=== PATIENT | male | born 1995 | race African-American/Black ===

== ENCOUNTER 2016-04-13 14:04 | Emergency (ER) | payer OTHER ==
[~2016-04-13] VITALS: Ht 175.3 cm; Wt 97.8 kg
[2016-04-13 14:22] VITALS: TEMP 36.9; Ht 175.3 cm; Wt 97.8 kg
[2016-04-13] MEDS ORDERED: MULT-513 PO (15:38)
[2016-04-13] MEDS ORDERED: XYLOCAINE 1%/SOD BICARB 20 ML VIAL INFIL STA (15:59)
[2016-04-13] MEDS ORDERED: SEPTRA DS HOME PACK 1 EA VIAL PO STA (18:15)
[2016-04-13] MEDS ORDERED: CEPHALEXIN 500MG HOME PACK 1 EA BTL PO STA (18:15)
[2016-04-13] MEDS ORDERED: SULF800T23 PO (18:17)
[2016-04-13] MEDS ORDERED: AMOX875T PO (18:17)
[2016-04-13] MEDS ORDERED: CEPH500C PO (18:18)
--- NOTE | 2016-04-13 18:19 | EMERGENCY ROOM VISIT NOTE ---
History First contact with patient: 15:21 Chief Complaint: SWELLING TO EXTREMITY Stated Complaint: SWELLING ON THE HEAD History of Present Illness The patient is a 20 year old male who presents to the Emergency Room with complaints of "swelling". The patient states that he received a haircut on that was very close to the scalp, and in the following days noticed a bump on the top of his head. This region as enlarged and developed swelling which has progressed and was forehead. He notes this started yesterday. He has had this in the past when he was younger and was placed on antibiotics. He rates his pain as a 5/10. He denies any trauma or vision changes. He denies any fevers or chills. His mother was talked to on the phone and indicated that he personally does not have a penicillin allergy but many in the family do. Tetanus is up-to-date. Review of Systems A complete 10-point Review of Systems was discussed with the patient, with pertinent positives and negatives listed in the History of Present Illness. All remaining Review of Systems questions can be considered negative unless otherwise specified. Past Medical/Surgical History High blood pressure Family History High blood pressure Social History Smoking Status: Never Smoker Social History: Patient lives with mother, denies tobacco and alcohol use. He is a senior at [employer]. Current/Historical Medications Scheduled Cephalexin Monohydrate (Keflex), 500 MG PO QID Multivitamins/Minerals (Mvi With Minerals), 1 TAB PO DAILY Sulfa/Trimethoprim (Bactrim Ds 800MG/160MG), 1 TAB PO BID Allergies Uncoded Allergies: PENICILLIN (Adverse Reaction, Unknown, , 04/13/16) Physical Exam Vital Signs Date Time Temp Pulse Resp B/P Pulse Ox O2 Delivery O2 Flow Rate FiO2 04/13/16 18:25 60 18 157/91 99 Room Air 04/13/16 16:17 67 16 132/71 100 Room Air 04/13/16 14:22 36.9 68 20 136/73 100 Room Air Physical Exam VITAL SIGNS - Vital signs and nursing notes were reviewed. Patient is afebrile , normotensive, non-tachycardic and is saturating well on room air at 100%. GENERAL -20-year-old male appearing his stated age who is in no acute distress. Communicates well with provider and answers questions appropriately. SKIN - Without rashes. There is a raised 1 cm x 1 cm palpable fluctuant mass on the superior portion of the scalp at the anterior most portion of the hairline, midline. There is no erythema. There is edema extending into the forehead. This appears to be dependent. No evidence of eye involvement. HEAD - NC/AT. There is tenderness palpation overlying the fluctuant palpable mass. There is tenderness extending into the forehead. Clinically, the fluctuant mass is consistent with an abscess. The forehead edema is consistent with dependent edema from the abscess. I do not suspect abscess progression to the forehead. NECK - Neck with FROM. Supple to palpation. No meningismus. LUNGS - Chest wall symmetric without accessory muscle use, intercostals retractions, or central cyanosis. Normal vesicular breath sounds CTA B/L. No wheezes, rales, or rhonchi appreciated. CARDIAC - RRR with S1/S2. No murmur, rubs, or gallops appreciated. Medical Decision & Procedures Medical Decision Patient was seen and evaluated as above. After obtaining a thorough history and physical examination it was apparent that the patient had a small localized abscess on the superior portion of his scalp likely secondary to his recent haircut that was short. Patient notes that he has had this when he was younger. There is edema extending into the forehead that is likely the edema that would be around the abscess on the head but due to gravity is dependent to the forehead. I do not suspect abscess in this region. Benefits versus risk of drainage was discussed with the patient. Patient notes that he would like it drained. 1% buffered lidocaine was used to anesthetize the region. 18- gauge needle was used to express purulent material which was sent to the lab for culture. Patient ordered as well. I do not believe a scalpel is necessary at this time. The region was fully expressed. It was dressed with a minor amount of bacitracin and a Band-Aid. He'll be placed upon Keflex and Bactrim. The Keflex will be 500 mg 4 times a day for 10 days and the Bactrim will be twice daily for 10 days as well. He was given a home pack with the remainder sent to his pharmacy. He is to return in 48 hours for recheck of the wound. He at this time I believe is stable for discharge and does not meet any criteria for admission. He clinically appears well. He was educated upon worrisome symptoms in which to return, had questions answered prior to discharge and was discharged home in good condition. He is important to note that he does not have a known penicillin allergy, his mother verified that only other members of the family have the allergy therefore the child states he does just in case. In evaluation treatment this patient the following differential diagnoses were entertained: Abscess, folliculitis, cellulitis, among others. Impression Primary Impression: Abscess Additional Impression: Cellulitis Departure Information Dispostion Home / Self-Care Condition GOOD Prescriptions Cephalexin Monohydrate (Keflex) 500 Mg Cap 500 MG PO QID for 9 Days, #36 CAP Prov: Taz Suarez PA-C 04/13/16 Sulfa/Trimethoprim (Bactrim Ds 800MG/160MG) Tab 1 TAB PO BID for 9 Days, #18 TAB Prov: Taz Suarez PA-C 04/13/16 Referrals No Doctor, Assigned (PCP) Patient Instructions My [facility] Additional Instructions You were seen in the emergency Department for a skin infection on top of your head. This was drained and you'll be placed upon to antibiotics. The first medication is Keflex which is to be taken 4 times daily for 10 days. The second medication is Bactrim which is to be taken twice daily for 10 days. You were given the first 24 hour supply for both medications here with [facility] pharmacy. Please return in 48 hours for recheck of your wound. Please return sooner with any worsening of your symptoms or fevers, chills, sweats, increasing pain or any new/concerning symptoms. Problem Qualifiers Additional Impression:
[2016-04-13 18:25] VITALS: BP 157/91; PULSE 60; O2SAT 99
== END 2016-04-13 18:29 | disposition home or self-care (01) ==
LOC: C.EDB 14:08 → C.EDD 18:29
DX: L03.811 Cellulitis of head [any part, except face] (principal); Z88.0 Allergy status to penicillin

== ENCOUNTER 2016-04-15 11:20 | Emergency (ER) | payer OTHER ==
[~2016-04-15] VITALS: Ht 175.3 cm; Wt 98.3 kg
[~2016-04-15 11:20] MED LIST: CEPH500C PO; MULT-513 PO; SULF800T23 PO
[2016-04-15 11:24] VITALS: TEMP 37; Ht 175.3 cm; Wt 98.3 kg
[2016-04-15] MEDS ORDERED: CEPH500C2 PO (11:33)
[2016-04-15] MEDS ORDERED: SULF800T23 PO (11:33)
[2016-04-15 12:20] VITALS: BP 127/55; PULSE 58; O2SAT 100
--- NOTE | 2016-04-15 20:36 | EMERGENCY ROOM VISIT NOTE ---
ED Visit Note First contact with patient: 11:33 CHIEF COMPLAINT: Abscess recheck. HISTORY OF PRESENT ILLNESS: Mr. Martines is a 20-year-old black male who ambulates into the ED accompanied by male friend requesting an abscess recheck. Patient reports 2 days ago he had an I&D procedure performed on a scalp abscess. He reports since the procedure he has been feeling well and has had no signs of worsening infection. He does report he has noted some mild swelling of his upper eyelids. I did review the patient's medical records and it was noted that he had forehead swelling that was related to his abscess. He denies any associated symptoms with his swelling including headache, visual changes, painful eye movement, fevers, chills, sweats. PHYSICAL EXAM: Vital Signs: Date Time Temp Pulse Resp B/P Pulse Ox O2 Delivery O2 Flow Rate FiO2 04/15/16 12:20 58 16 127/55 100 04/15/16 11:24 37.0 62 18 130/70 100 Room Air General: 20-year-old male in no acute distress, nontoxic-appearing, afebrile and hemodynamically stable. Neurological: Awake, alert and oriented 3. Answering questions appropriately and following commands. Cranial nerves II through XII grossly intact. Skin: With the top of his scalp patient's I&D procedure was performed there remains some mild swelling but no erythema. There is minimal drainage from the wound that is purulent but no active bleeding. The wound itself is not tender at this time. There is no lymphangitis. I do note he still has mild bifrontal swelling that has now gradually decreased downward due to gravity and there is mild swelling of both eyelids which is slightly more pronounced on the right. The area swelling in his eyelids are not erythematous or warm to the touch. ED COURSE: Patient is assessed as noted above. Patient's bandage over his I&D procedure was removed and I did express a small amount of purulent drainage from his wound. Patient was educated about tonight's findings and instructed on his treatment plan; he verbalizes understanding and agreement with this plan. CLINICAL IMPRESSION: Healing abscess. Eyelid swelling. PLAN: Patient was encouraged to continue his antibiotics until completed. Patient was encouraged to try to lie supine on his time off and use ice over the area swelling. Patient was encouraged to follow-up with [facility] or return to the ED for recheck in 36-48 hours. Patient was encouraged return the ED for worsening swelling, fevers, worsening purulent drainage, red streaking on the skin or any new/concerning symptoms.
== END 2016-04-15 12:21 | disposition home or self-care (01) ==
LOC: C.EDB 11:21 → C.EDD 12:21
DX: Z48.00 Encounter for change or removal of nonsurgical wound dressing (principal); H02.89 Other specified disorders of eyelid